=== PATIENT | male | born 1945 | race Caucasian/White ===

== ENCOUNTER 2018-03-07 16:30 | Inpatient (IN) | payer MEDICARE, OTHER ==
[~2018-03-07] VITALS: Ht 175.3 cm; Wt 89.5 kg
[~2018-03-07 16:30] MED LIST: ACEDIPPM; ACET325 PO; ACYC800 PO; ALBU3IS INH; ALBU90OI INH; ASPI325EC PO; CLOP75 PO; LEVO750 PO; LISI5 PO; METO50 PO; OXYACE5T PO; PRED20 PO; SIMV40 PO; ZYRTEC10 M1 PO; [UNRECOGNIZED DRUG - REMARK]
[2018-03-07] MEDS ORDERED: ASPI81CH PO (16:57)
[2018-03-07] MEDS ORDERED: HYDCHL25 PO (16:58)
[2018-03-07] MEDS ORDERED: CHOL10002 (16:59)
[2018-03-07 17:04] LABS: BASOPHILS ABSOLUTE AUTO 0.03 K/mm3 (0.00-0.23); BASOPHILS PERCENT AUTO 0 % (0-2); EOSINOPHILS ABSOLUTE AUTO 0.01 K/mm3 (0.00-0.68); EOSINOPHILS PERCENT AUTO 0 % (0-6); Hematocrit 39.1 % (37.0-53.0); Hemoglobin 12.9 g/dL (13.5-17.5); IMMATURE GRAN ABSOLUTE AUTO 0.09 K/mm3 (0.00-0.10); IMMATURE GRAN PERCENT AUTO 1 % (0-1); LYMPHOCYTES ABSOLUTE AUTO 2.74 K/mm3 (0.84-5.20); LYMPHOCYTES PERCENT AUTO 16 % (21-46); MONOCYTES ABSOLUTE AUTO 1.09 K/mm3 (0.16-1.47); MONOCYTES PERCENT AUTO 6 % (4-13); Mean Corpuscular Volume 79 fL (80-100); NEUTROPHILS ABSOLUTE AUTO 13.35 K/mm3 (1.96-9.15); NEUTROPHILS PERCENT AUTO 77 % (41-73); RDW Coefficient Variation 17.4 % (11.7-14.2); RDW Standard Deviation 48.3 fL (35.1-46.3); Red Blood Cell Count 4.96 M/mm3 (4.30-5.90); White Blood Cell Count 17.31 K/mm3 (4.00-11.30)
[2018-03-07 17:05] LABS: Mean Platelet Volume 11.5 fL (9.1-12.4); Platelet Count 139 K/mm3 (150-400)
[2018-03-07 18:21] LABS: Alanine Aminotransfer (ALT/SGP 24 U/L (12-78); Albumin, Blood 3.9 g/dL (3.4-5.0); Albumin/Globulin Ratio 1.1 (0.8-1.8); Alk Phos 80 U/L (50-136); Anion Gap 14 mmol/L (6-16); Aspartate Aminotrans (AST/SGOT 16 U/L (12-37); Blood Urea Nitrogen 34 mg/dL (8-24); Bun/Creatinine Ratio 20.4 (12.0-20.0); CO2, Blood 23 mmol/L (21-32); Calcium, Blood 8.9 mg/dL (8.5-10.1); Chloride, Blood 92 mmol/L (98-108); Creatinine, Blood 1.67 mg/dL (0.60-1.20); Globulin, Blood 3.5 g/dL (2.2-4.0); Glomerular Filtration Rate 43 (60-); Glucose, Blood 154 mg/dL (70-99); Potassium, Blood 3.4 mmol/L (3.5-5.5); Sodium, Blood 129 mmol/L (136-145); Total Protein, Blood 7.4 g/dL (6.4-8.2); Troponin I <0.015 ng/mL (0.000-0.040)
[2018-03-07 23:07] LABS: Hematocrit 38.4 % (37.0-53.0); Hemoglobin 12.7 g/dL (13.5-17.5)
[2018-03-08 05:10] LABS: BASOPHILS ABSOLUTE AUTO 0.02 K/mm3 (0.00-0.23); BASOPHILS PERCENT AUTO 0 % (0-2); EOSINOPHILS ABSOLUTE AUTO 0.02 K/mm3 (0.00-0.68); EOSINOPHILS PERCENT AUTO 0 % (0-6); Hematocrit 35.8 % (37.0-53.0); IMMATURE GRAN ABSOLUTE AUTO 0.08 K/mm3 (0.00-0.10); IMMATURE GRAN PERCENT AUTO 1 % (0-1); LYMPHOCYTES ABSOLUTE AUTO 2.43 K/mm3 (0.84-5.20); LYMPHOCYTES PERCENT AUTO 17 % (21-46); MONOCYTES ABSOLUTE AUTO 1.25 K/mm3 (0.16-1.47); MONOCYTES PERCENT AUTO 9 % (4-13); Mean Corpuscular HGB 26.1 pg (26.0-34.0); Mean Corpuscular HGB Conc 33.5 g/dL (31.5-36.5); Mean Corpuscular Volume 78 fL (80-100); Mean Platelet Volume 11.3 fL (9.1-12.4); NEUTROPHILS PERCENT AUTO 73 % (41-73); Platelet Count 159 K/mm3 (150-400); RDW Coefficient Variation 17.6 % (11.7-14.2); RDW Standard Deviation 48.8 fL (35.1-46.3)
[2018-03-08 05:38] LABS: Bun/Creatinine Ratio 21.7 (12.0-20.0); Calcium, Blood 8.4 mg/dL (8.5-10.1); Creatinine, Blood 1.8 mg/dL (0.60-1.20); Potassium, Blood 3.4 mmol/L (3.5-5.5); Troponin I 0.025 ng/mL (0.000-0.040)
[2018-03-08 12:35] LABS: Source, Urine Catheter
[2018-03-08 12:56] LABS: Appearance, Urine Hazy (Clear); Blood, Urine 2+ (Neg); Color, Urine Yellow (P-Yellow); Glucose Qualitative, Urine Neg (Neg); Ketones, Urine 2+ (Neg); Leukocyte Esterase, Urine 1+ (Neg); Nitrite, Urine Neg (Neg); Protein, Urine 1+ (Neg); Specific Gravity, Urine 1.025 (1.003-1.022); Urobilinogen, Urine 1+ (Normal)
[2018-03-08 13:49] LABS: Bacteria Many /hpf; Bilirubin, Urine 1+ (Neg); Squamous Epithelial Cells Few /hpf (Few)
[2018-03-09 13:40] LABS: BASOPHILS ABSOLUTE AUTO 0.02 K/mm3 (0.00-0.23); BASOPHILS PERCENT AUTO 0 % (0-2); LYMPHOCYTES ABSOLUTE AUTO 3.14 K/mm3 (0.84-5.20); LYMPHOCYTES PERCENT AUTO 32 % (21-46); MONOCYTES ABSOLUTE AUTO 0.96 K/mm3 (0.16-1.47); MONOCYTES PERCENT AUTO 10 % (4-13); Mean Corpuscular HGB Conc 32.4 g/dL (31.5-36.5); Mean Corpuscular Volume 80 fL (80-100); Mean Platelet Volume 10.9 fL (9.1-12.4); Platelet Count 159 K/mm3 (150-400); RDW Coefficient Variation 18.2 % (11.7-14.2); RDW Standard Deviation 52.6 fL (35.1-46.3); Red Blood Cell Count 4.62 M/mm3 (4.30-5.90); White Blood Cell Count 9.89 K/mm3 (4.00-11.30)
[2018-03-09 13:42] LABS: EOSINOPHILS PERCENT AUTO 0 % (0-6); IMMATURE GRAN ABSOLUTE AUTO 0.03 K/mm3 (0.00-0.10); IMMATURE GRAN PERCENT AUTO 0 % (0-1); NEUTROPHILS ABSOLUTE AUTO 5.74 K/mm3 (1.96-9.15); NEUTROPHILS PERCENT AUTO 58 % (41-73)
[2018-03-09 13:53] LABS: Albumin, Blood 2.9 g/dL (3.4-5.0); Albumin/Globulin Ratio 0.8 (0.8-1.8); Bilirubin, Total 1.6 mg/dL (0.1-1.0); Bun/Creatinine Ratio 16.7 (12.0-20.0); Calcium, Blood 8.2 mg/dL (8.5-10.1); Creatinine, Blood 4.68 mg/dL (0.60-1.20); Globulin, Blood 3.5 g/dL (2.2-4.0); Total Protein, Blood 6.4 g/dL (6.4-8.2)
[2018-03-09 14:06] LABS: BAND PERCENT MAN 24 % (0-8); BASOPHILS PERCENT MAN 0 % (0-2); EOSINOPHILS PERCENT MAN 0 % (0-6); LYMPHOCYTES ABSOLUTE MAN 3.75 K/mm3 (0.84-5.20); LYMPHOCYTES PERCENT MAN 38 % (21-46); METAMYELOCYTE ABSOLUTE MAN 0.19 K/mm3 (0.00-0.00); METAMYELOCYTE PERCENT MAN 2 % (0-0); MONOCYTES ABSOLUTE MAN 0.09 K/mm3 (0.16-1.47); MONOCYTES PERCENT MAN 1 % (4-13); MYELOCYTE ABSOLUTE MAN 0.19 K/mm3 (0.00-0.00); MYELOCYTE PERCENT MAN 2 % (0-0); NEUTROPHILS ABSOLUTE MAN 5.63 K/mm3 (1.96-9.15); SEG NEUTROPHILS PERCENT MAN 33 % (41-73); TOTAL CELLS COUNTED 100
== END 2018-03-09 18:13 | disposition short-term general hospital (02) | DRG 394 ==
LOC: ER 16:30 → MEDS 18:45 → ER 20:05 → MEDS 20:11
PROVIDERS: Emergency Medicine; Internal Medicine
DX: K40.30 Unilateral inguinal hernia, with obstruction, without gangrene, not specified as recurrent (principal); N17.9 Acute kidney failure, unspecified; E87.1 Hypo-osmolality and hyponatremia; N13.30 Unspecified hydronephrosis; N39.0 Urinary tract infection, site not specified; K92.0 Hematemesis; I25.2 Old myocardial infarction; I25.10 Atherosclerotic heart disease of native coronary artery without angina pectoris; I10 Essential (primary) hypertension; E78.5 Hyperlipidemia, unspecified; Z87.891 Personal history of nicotine dependence; R07.9 Chest pain, unspecified; Z95.5 Presence of coronary angioplasty implant and graft; N13.9 Obstructive and reflux uropathy, unspecified
CPT/HCPCS: 36415; 74176; 80048; 80053; 81001; 82272; 83605; 84484; 85014; 85018; 85025; 87077; 87086; 87186; 93005; 93010; 96374; 96375; 99285-25; C9113; J0696; J1170; J2060; J2405; J2550; J3010; J7050; J7120

== ENCOUNTER 2022-10-17 20:55 | Emergency (ER) | payer MEDICARE, OTHER ==
[~2022-10-17] VITALS: Ht 175.3 cm; Wt 96.2 kg
[~2022-10-17 20:55] MED LIST changes: +ASPI81CH PO; +CHOL10002; +HYDCHL25 PO
[2022-10-17 22:18] LABS: BASOPHILS ABSOLUTE AUTO 0.04 K/mm3 (0.00-0.23); BASOPHILS PERCENT AUTO 1 % (0-2); EOSINOPHILS ABSOLUTE AUTO 0.16 K/mm3 (0.00-0.68); EOSINOPHILS PERCENT AUTO 2 % (0-6); Hematocrit 42.6 % (37.0-53.0); Hemoglobin 14.3 g/dL (13.5-17.5); IMMATURE GRAN ABSOLUTE AUTO 0.03 K/mm3 (0.00-0.10); IMMATURE GRAN PERCENT AUTO 1 % (0-1); LYMPHOCYTES ABSOLUTE AUTO 1.41 K/mm3 (0.84-5.20); LYMPHOCYTES PERCENT AUTO 22 % (21-46); MONOCYTES ABSOLUTE AUTO 0.72 K/mm3 (0.16-1.47); MONOCYTES PERCENT AUTO 11 % (4-13); Mean Corpuscular HGB 30.7 pg (26.0-34.0); Mean Corpuscular HGB Conc 33.6 g/dL (31.5-36.5); Mean Corpuscular Volume 91 fL (80-100); Mean Platelet Volume 10.9 fL (9.1-12.4); NEUTROPHILS ABSOLUTE AUTO 4.19 K/mm3 (1.96-9.15); NEUTROPHILS PERCENT AUTO 64 % (41-73); Platelet Count 119 K/mm3 (150-400); RDW Standard Deviation 47.4 fL (35.1-46.3); Red Blood Cell Count 4.66 M/mm3 (4.30-5.90); White Blood Cell Count 6.55 K/mm3 (4.00-11.30)
[2022-10-17 22:36] LABS: Albumin, Blood 3.4 g/dL (3.4-5.0); Albumin/Globulin Ratio 0.9 (0.8-1.8); Bilirubin, Total 2.2 mg/dL (0.1-1.0); Bun/Creatinine Ratio 14.1 (12.0-20.0); Calcium, Blood 8.9 mg/dL (8.5-10.1); Creatinine, Blood 0.99 mg/dL (0.60-1.20); Globulin, Blood 3.6 g/dL (2.2-4.0); Potassium, Blood 3.9 mmol/L (3.5-5.5)
[2022-10-17] MEDS ORDERED: TAMSULOSIN HCL0.4 M1 PO (23:14)
[2022-10-17] MEDS ORDERED: KLOR-CON 1010 ME9 PO (23:14)
[2022-10-17] MEDS ORDERED: ZINC15 PO (23:15)
[2022-10-17] MEDS ORDERED: Vitamin C100 M1 PO (23:15)
[2022-10-17] MEDS ORDERED: FISH OIL 1,2001 EAC7 PO (23:16)
[2022-10-18] MEDS ORDERED: HYDPAM25 PO (01:28)
== END 2022-10-18 01:52 | disposition home or self-care (01) ==
LOC: ER 20:55
PROVIDERS: Student in an Organized Health Care Education/Training Program
DX: R07.89 Other chest pain (principal); I10 Essential (primary) hypertension; F41.9 Anxiety disorder, unspecified; R79.89 Other specified abnormal findings of blood chemistry; Z79.899 Other long term (current) drug therapy; Z79.82 Long term (current) use of aspirin
CPT/HCPCS: 36415; 71045; 80053; 84484; 85025; 93005; 93010; 99284-25

== ENCOUNTER 2022-11-14 08:06 | Inpatient (IN) | payer MEDICARE, OTHER ==
[~2022-11-14] VITALS: Ht 170.2 cm; Wt 77.2 kg
[~2022-11-14 08:06] MED LIST changes: -CHOL10002; +FISH OIL 1,2001 EAC7 PO; +HYDPAM25 PO; +KLOR-CON 1010 ME9 PO; +TAMSULOSIN HCL0.4 M1 PO; +VITAMIN D31000 UNI1 PO; +Vitamin C100 M1 PO; +ZINC15 PO
[2022-11-14 08:42] LABS: Hematocrit 48.8 % (37.0-53.0); Hemoglobin 15.9 g/dL (13.5-17.5); Mean Corpuscular HGB 29.6 pg (26.0-34.0); Mean Corpuscular HGB Conc 32.6 g/dL (31.5-36.5); Mean Corpuscular Volume 91 fL (80-100); Mean Platelet Volume 10.8 fL (9.1-12.4); Platelet Count 290 K/mm3 (150-400); RDW Coefficient Variation 14.1 % (11.7-14.2); RDW Standard Deviation 46.5 fL (35.1-46.3); Red Blood Cell Count 5.37 M/mm3 (4.30-5.90); White Blood Cell Count 48.68 K/mm3 (4.00-11.30)
[2022-11-14 08:57] LABS: Source, Urine Foley catheter
[2022-11-14 09:01] LABS: Appearance, Urine Clear (Clear); Blood, Urine 1+ (Neg); Color, Urine Amber (P-Yellow); Glucose Qualitative, Urine Neg (Neg); Ketones, Urine 2+ (Neg); Leukocyte Esterase, Urine 1+ (Neg); Nitrite, Urine Pos (Neg); Protein, Urine 2+ (Neg); Specific Gravity, Urine 1.025 (1.003-1.022); Urobilinogen, Urine 3+ (Normal)
[2022-11-14 09:04] LABS: Albumin/Globulin Ratio 0.7 (0.8-1.8); Bun/Creatinine Ratio 32.5 (12.0-20.0); Calcium, Blood 9.4 mg/dL (8.5-10.1); Creatinine, Blood 2.06 mg/dL (0.60-1.20); Globulin, Blood 4.4 g/dL (2.2-4.0); Potassium, Blood 2.7 mmol/L (3.5-5.5); Total Protein, Blood 7.4 g/dL (6.4-8.2)
[2022-11-14 09:05] LABS: PCO2 Arterial 20.2 mmHg (35-45); PO2 Arterial 128 mmHg (80-100); pH Blood Arterial 7.38 (7.35-7.45)
[2022-11-14 09:07] LABS: Bilirubin, Urine 2+ (Neg)
[2022-11-14 09:10] LABS: Mucus Mod (0-Heavy); Red Blood Cells, Urine 0-2 /hpf (0-2); Squamous Epithelial Cells Few /hpf (Few)
[2022-11-14 09:11] LABS: Bacteria Mod /hpf
[2022-11-14 09:16] LABS: BASOPHILS PERCENT MAN 0 % (0-2); EOSINOPHILS PERCENT MAN 0 % (0-6); LYMPHOCYTES ABSOLUTE MAN 27.26 K/mm3 (0.84-5.20); LYMPHOCYTES PERCENT MAN 56 % (21-46); MONOCYTES ABSOLUTE MAN 1.46 K/mm3 (0.16-1.47); MONOCYTES PERCENT MAN 3 % (4-13); NEUTROPHILS ABSOLUTE MAN 19.95 K/mm3 (1.96-9.15); SEG NEUTROPHILS PERCENT MAN 41 % (41-73); TOTAL CELLS COUNTED 100
[2022-11-14 09:21] LABS: U Amphetamine Screen Not Detected; U Barbituate Screen Not Detected; U Benzodiazapine Screen Not Detected; U Buprenorphine Screen Not Detected; U Cannabinoids Screen Not Detected; U Cocaine Screen Not Detected; U Methadone Screen Not Detected; U Methamphetamine Screen Not Detected; U Opiates Screen Not Detected; U Oxycodone Screen Not Detected; U Phencyclidine Screen Not Detected; U Propoxyphene Screen Not Detected
[2022-11-14] MEDS ORDERED: FINA5 PO ×2 (10:06→17:22)
[2022-11-14] MEDS ORDERED: FURO20 PO (10:07)
[2022-11-14] MEDS ORDERED: HYDROXYZINE PAM25 MG PO (10:09)
[2022-11-14] MEDS ORDERED: Zestril30 MG PO (10:10)
[2022-11-14] MEDS ORDERED: METO100 PO (10:11)
[2022-11-14] MEDS ORDERED: KLOR-CON 1010 ME1 PO (10:12)
[2022-11-14] MEDS ORDERED: FLOMAX0.4 MG PO (10:13)
[2022-11-14 12:31] VITALS: BP 120/86
[2022-11-14 15:34] VITALS: BP 100/65
[2022-11-14] MEDS ORDERED: HYDPAM25 (17:07)
[2022-11-14] MEDS ORDERED: NITR.4SL SL (17:09)
--- NOTE | 2022-11-14 17:10 | NUR ---
ADMIT: PATIENT ADMIT TO PCU AT 1220. USED SLIDE SHEET TO TRANSFER. ABLE TO TELL ME HIS NAME, , AND WHERE HE IS. UNAWARE OF SITUATION AND HOW HE GOT HERE. ALERT AND ORIENTED X2-3. FORGETFUL AND ASKING REPETATIVE QUESTIONS. DENIES NUMBNESS/TINGLING. PERRLA. BILATERAL DEVELOPMENT DISABILITY SPECIALIST STRENGTH AND EXTREMITY MOVEMENTS. ON ROOM AIR SATING ABOVE 95%. LUNGS SOUNDS CLEAR WITH EXPIRATORY WHEEZE. DENIES SOB. TELE SHOWING AFIB WITH HR 90'S. DENIES CHEST PAIN/PRESSURE. DENIES KNOWNING ANY HISTORY OF AFIB. PPP. NO EDEMA NOTED. DENIES ABDOMINAL PAIN/NAUSEA. BEDSIDE SWALLOW EVAL DONE AND NO ISSUES WITH SWALLOWING NOTED. [facility] SOFT DIET ORDERS IN PLACE. PATIENT DOES NOT HAVE ANY TEETH OR DENTURES. CLARK CATH IN PLACE DRAINING CLEAR/ALBA TEA WITH SMALL AMOUNTS OF SEDIMENT. PATIENT COMPLAINS OF PAIN AT URETHRA SITE, PATIENT PULLING AT CATHETER EARLIER. SMALL AMOUNT OF DISCHARGE AT URETHRA. CATH CARE COMPLETED WITH CATHETER CLEANING WIPES. 3 MODERATE-LARGE SIZED BROWN/FOUL SMELLING STOOLS. STOOL SAMPLE SENT TO LAB. SISTER IN LAW KATYA AND NIECE MARCUS ARE PRIMARY CONTACTS. INFO WRITTEN ON BOARD. PATIENT PULLED LEFT FOREARM IV. RIGHT AC IV INFUSING NS AND ZOSYN PER EMAR AT THIS TIME. USING CALL LIGHT INTERMIT AND AT TIMES CALLING OUT. CODE STATUS REVIEWED WITH PATIENT AND FULL CODE WANTED. LACTIC TRENDING DOWN AND WNL. SKIN OVERALL C/D/I. REDNESS TO COCCYX THAT IS BLANCHABLE AND BILATERAL KNEE EXCORIATIONS.
[2022-11-14] MEDS ORDERED: LORA10ER PO (17:19)
[2022-11-14 18:11] VITALS: BP 143/82
--- NOTE | 2022-11-14 18:35 | NUR ---
SHIFT SUMMARY: NO ACUTE CHANGES. SEE PREVIOUS NOTE. MED LIST OBTAINED FROM [facility] AND MED REC COMPELTED TO THE BEST OF THIS RN ABILITY WITH MED LIST. MED LIST PLACED IN CHART. REMAINS ON ROOM AIR. REMAINS IN AFIB, NO TELE EVENTS. CLARK CONTINUES TO DRAIN ALBA URINE. NS INFUSING PER EMAR. PATIENT ABLE TO EAT SMALL AMOUNT OF DINNER, NO SWALLOW ISSUES NOTED. REMAINS BEDREST WITH BED ALARM IN PLACE. DWAYNE VELAZQUEZ CALLED AND UPDATED. PATIENT CALLED DWAYNE FROM ROOM PHONE. WILL REPORT OFF TO NOC RN.
[2022-11-14 19:27] VITALS: BP 126/60
--- NOTE | 2022-11-14 22:36 | NUR ---
CONTACTED DR CARLISLE REGARDING PT PAIN POST CLARK REMOVAL AND ORDER FOR URO-JET WAS OBTAINED.
[2022-11-15 00:01] VITALS: BP 110/63
[2022-11-15 03:42] VITALS: BP 104/64
[2022-11-15 03:52] LABS: BASOPHILS ABSOLUTE AUTO 0.03 K/mm3 (0.00-0.23); BASOPHILS PERCENT AUTO 0 % (0-2); EOSINOPHILS PERCENT AUTO 1 % (0-6); Hematocrit 39.1 % (37.0-53.0); Hemoglobin 13.4 g/dL (13.5-17.5); Mean Corpuscular HGB 30.6 pg (26.0-34.0); Mean Corpuscular HGB Conc 34.3 g/dL (31.5-36.5); Mean Corpuscular Volume 89 fL (80-100); Mean Platelet Volume 10.7 fL (9.1-12.4); Platelet Count 165 K/mm3 (150-400); RDW Coefficient Variation 14.5 % (11.7-14.2); RDW Standard Deviation 46.2 fL (35.1-46.3); Red Blood Cell Count 4.38 M/mm3 (4.30-5.90); White Blood Cell Count 19.32 K/mm3 (4.00-11.30)
[2022-11-15 03:54] LABS: IMMATURE GRAN ABSOLUTE AUTO 0.06 K/mm3 (0.00-0.10); IMMATURE GRAN PERCENT AUTO 0 % (0-1); LYMPHOCYTES ABSOLUTE AUTO 9.69 K/mm3 (0.84-5.20); LYMPHOCYTES PERCENT AUTO 50 % (21-46); MONOCYTES ABSOLUTE AUTO 0.75 K/mm3 (0.16-1.47); MONOCYTES PERCENT AUTO 4 % (4-13); NEUTROPHILS ABSOLUTE AUTO 8.69 K/mm3 (1.96-9.15); NEUTROPHILS PERCENT AUTO 45 % (41-73)
[2022-11-15 04:12] LABS: Albumin, Blood 2.4 g/dL (3.4-5.0); Albumin/Globulin Ratio 0.7 (0.8-1.8); Bilirubin, Total 2.1 mg/dL (0.1-1.0); Bun/Creatinine Ratio 32.1 (12.0-20.0); Creatinine, Blood 1.9 mg/dL (0.60-1.20); Globulin, Blood 3.4 g/dL (2.2-4.0); Potassium, Blood 3.1 mmol/L (3.5-5.5); Total Protein, Blood 5.8 g/dL (6.4-8.2)
--- NOTE | 2022-11-15 06:19 | NUR ---
DIE STORAGE CLERK SUMMARY ASSUMED CARE OF THE PT AT 1900. HE IS ALERT AND ORIENTED TO PLACE, MONTH, BIRTHDAY AND HIS FAMILY. PT IMPULSIVE AND FORGETFUL - BED ALARM ON. HE HAD GOTTEN OUT OF BED ON HIS OWN THIS SHIFT AND PUT TENSION ON THE CLARK CATHETER THAT HAD BEEN PLACED IN ED. PT THEN REPORTED SEVERE PAIN WITH CLEANING AND REPOSITIONING OF THE CLARK WITH NOTED BLOOD IN THE CATHETER TUBING SO CLARK WAS REMOVED. PT CONTINUED TO HAVE URETHRAL PAIN SO WAS GIVEN A UROJET WITH IMPROVEMENT. PT HAS BEEN INCONTINENT IN ATTENDS SINCE CLARK REMOVAL. URINE IS ALBA IN COLOR AND PT REPORTS BURNING AT TIMES. HE HAS BEEN RECEIVING IV ABX AND IV FLUIDS. PT IS VERY BORED AND FIDGETING OFTEN.
[2022-11-15 08:13] VITALS: BP 99/65
--- NOTE | 2022-11-15 10:48 | NUR ---
AM NOTE: PATIENT ALERT AND ORIENTED TO SELF, , PLACE, AND YEAR. UNABLE TO TELL ME SITUATIONAL DETAILS. PERRLA. DENIES NUMBNESS/TINGLING. EQUAL BILATERAL STRENGTH AND EXTREMITY MOVEMENTS. ON ROOM AIR SATING ABOVE 95%. EVEN UNLABORDED RESPIRATIONS. OCCASIONAL LOOSE COUGH WITH THIN/CLEAR SPUTUM. ON TELE SHOWING AFIB WITH HR 80-90'S. DENIES CHEST PAIN/PRESSURE. BP ON SOFTER SIDE. NO SIGNS OF EDEMA. DENIES ABODMINAL PAIN/NAUSEA. EATING AND DRINKING SMALL AMOUNTS OF WATER. INCONTINENT OF URINE AND STOOL. STOOLS HAVE BEEN LOOSE/LIQUID. STOOL CULTURE PENDING. ABX GIVEN. SKINE OVERALL C/D/I. REDNESS TO COCCYX WITH MEPILEX IN PLACE WELL BILATERAL KNEE ABRASION FROM BEING DOWN PRIOR TO ADMIT. CALL LIGHT IN REACH. BED ALARM IN PLACE. DR. BRAGG BY TO SEE PATIENT. NEW ORDERS FOR THIS RN TO PLACE. ORDERS: H&H AND K LAB DRAW AT 1600, MEDICAL STATUS WITH TELE, DISCONTINUE NORMAL SALINE, 40 MEQ KCL PO NOW X1. ORDERS IN PLACE.
[2022-11-15 11:14] VITALS: BP 108/73
--- NOTE | 2022-11-15 12:55 | NUR ---
AROUND 1252 PATIENT CONVERTED FROM AFIB TO SINUS RHYTHM, HR 50-60'S. PATIENT SLEEPING DURING TIME. DR. BRAGG CALLED AND UPDATED. PHYSICAL THERAPY IN ROOM AT THIS TIME. PLAN FOR ABDOMINAL ULTRASOUND AROUND 1330.
[2022-11-15 14:07] VITALS: BP 116/76
--- NOTE | 2022-11-15 14:27 | NUR ---
TRANSFER TO MEDICAL: NO ACUTE CHANGES. PATIENT LEFT PCU VIA WHEELCHAIR WITH ALL PERSONAL BELONGINGS AND HOSPITAL CHART. SISTER IN LAW KATYA CALLED AND UPDATED ON TRANSFER. ULTRASOUND COMPLETED. REPORTED OFF TO MED FLOOR RN.
[2022-11-15 16:31] LABS: Hematocrit 39.8 % (37.0-53.0)
--- NOTE | 2022-11-15 17:10 | NUR ---
SHIFT SUMMARY PATIENT IS ALERT AND ORIENTED BUT FORGETFUL. PATIENT IS A AFTERNOON TRANSFER FROM PCU 10. PATIENT HAS HAD NO ACUTE EVENTS THIS SHIFT. VITAL SIGNS REVIEWED. PATIENT HAS HAD NO COMPLAINTS OF PAIN, SOB, NAUSEA OR SOB THIS SHIFT. ABX INFUSED. BED IN LOWEST AND LOCKED POSITION. CALL LIGHT IN PLACE. WILL MONITOR UNTIL SHIFT CHANGE.
[2022-11-15 20:03] VITALS: BP 122/75
--- NOTE | 2022-11-16 04:08 | NUR ---
SHIFT SUMMARY; NO ACUTE CHANGES OVERNIGHT. THE PT HAS BEEN SLEEPING FOR ALMOST THE ENTIRETY OF THE SHIFT. TELE IS IN PLACE, THE PT HAS BEEN SINUS/SINUS TAE 50-60'S. THE PT DENIES ANY SOB, CHEST PAIN/PRESSURE, PAIN OR N/V. CURRENTLY THE PT IS RESTING IN BED WITH THE BED IN THE LOWEST POSITION AND THE CALL LIGHT AT BEDSIDE.
[2022-11-16 04:09] VITALS: BP 124/70
[2022-11-16 05:09] LABS: BASOPHILS ABSOLUTE AUTO 0.03 K/mm3 (0.00-0.23); BASOPHILS PERCENT AUTO 0 % (0-2); EOSINOPHILS ABSOLUTE AUTO 0.23 K/mm3 (0.00-0.68); EOSINOPHILS PERCENT AUTO 2 % (0-6); Hematocrit 38.8 % (37.0-53.0); Hemoglobin 12.8 g/dL (13.5-17.5); IMMATURE GRAN ABSOLUTE AUTO 0.04 K/mm3 (0.00-0.10); IMMATURE GRAN PERCENT AUTO 0 % (0-1); LYMPHOCYTES ABSOLUTE AUTO 6.58 K/mm3 (0.84-5.20); LYMPHOCYTES PERCENT AUTO 64 % (21-46); MONOCYTES ABSOLUTE AUTO 0.48 K/mm3 (0.16-1.47); MONOCYTES PERCENT AUTO 5 % (4-13); Mean Corpuscular HGB 29.8 pg (26.0-34.0); Mean Corpuscular Volume 90 fL (80-100); Mean Platelet Volume 10.8 fL (9.1-12.4); NEUTROPHILS ABSOLUTE AUTO 2.98 K/mm3 (1.96-9.15); NEUTROPHILS PERCENT AUTO 29 % (41-73); Platelet Count 137 K/mm3 (150-400); RDW Coefficient Variation 14.7 % (11.7-14.2); RDW Standard Deviation 47.7 fL (35.1-46.3); White Blood Cell Count 10.34 K/mm3 (4.00-11.30)
[2022-11-16 05:36] LABS: Albumin, Blood 2.4 g/dL (3.4-5.0); Albumin/Globulin Ratio 0.8 (0.8-1.8); Bilirubin, Total 1.8 mg/dL (0.1-1.0); Calcium, Blood 8.3 mg/dL (8.5-10.1); Creatinine, Blood 1.4 mg/dL (0.60-1.20); Globulin, Blood 3.1 g/dL (2.2-4.0); Potassium, Blood 3.5 mmol/L (3.5-5.5); Total Protein, Blood 5.5 g/dL (6.4-8.2)
[2022-11-16 07:15] VITALS: BP 134/73
[2022-11-16 15:24] VITALS: BP 127/73
--- NOTE | 2022-11-16 15:46 | NUR ---
SHIFT SUMMARY: PATIENT IS ALERT AND ORIENTED TO SELF, PLACE AND PERSON, BUT COULD NOT RECALL THE SPECIFIC DAY, DATE, MONTH AND EVEN YEAR. IMPULSSIVE AND DOES NOT USES CALL LIGHT APPROPRIATELY. PLEASANT, COOPERATIVE c CARE AND EASILY REDIRECTABLE. PATIENT DENIES CP/PRESSURE, SOB, N/V AND GENERALIZED PAIN. ON TELE, HR IN THE HIGH 60'S BPM c PAC, PER TITLE CURATOR KAHLIL. PATIENT AMBULATES TO BATHROOM AND BACK IN BED c 1 ASSIST. PATIENT IS CONTINENCE/INCONTINENCE, AND WEAR ATTENDS. ATTENDS CHANGED T/O SHIFT. TOLERATING ORAL INTAKE WITHOUT ANY DIFFICULTIES. IV TO RAC SALINE LOCKED. BED ALARM ON FOR SAFETY. CALL LIGHT IN REACH.
[2022-11-16 19:31] VITALS: BP 118/65
--- NOTE | 2022-11-16 20:00 | NUR ---
PT UP TO BRP WITH WALKER AND SBA. PT HAS NOTED BLOOD, APPX 1 TABLESPOON OF BLOOD IN HIS ATTENDS - UNABLE TO DETERMINE SOURCE, NO VISIBLE SIGNS OF BLEEDING FROM RECTUM, PENIS, OR ABRASIONS - WILL CONTINUE TO MONITOR THROUGHOUT THE NIGHT.
--- NOTE | 2022-11-17 00:25 | NUR ---
SPOKE TO HUE MARCUM - UPDATED ON BLEEDING FROM PENIS. TRIXIE SPOKE TO RN THAT HAD THIS PT LAST NOC. RN REPORTED THAT PT WASN'T BLEEDING FROM PENIS LAST NOC, AND PER HER REPORT PT DID HAVE A CLARK, WHICH WAS REMOVED PRIOR TO HER SHIFT LAST NOC.
--- NOTE | 2022-11-17 00:30 | NUR ---
UP TO BRP WITH SBA/WALKER - INITIAL STREAM OF URINE IN URINAL - NO VISIBLE BLEEDING - SO PT CONTINUED TO URINATE SITTING DOWN ON TOILET - WITH APPX 2 TEASPOONS OF BLOOD IN TOILET. VISUALIZED BLOOD COMING FROM PENIS - WILL FOLLOW UP WITH . PT IS ON HEPARIN - SEE EMAR.
--- NOTE | 2022-11-17 00:37 | NUR ---
DR. GEORGES NOTIFIED - DC HEPARIN FOR NOW. CONTINUE TO MONITOR BLOOD WITH URINATION.
--- NOTE | 2022-11-17 04:08 | NUR ---
SHIFT SUMMARY - HEPARIN DC'D TONIGHT, DUE TO BLEEDING FROM PENIS, WITH NURSE NOTIFY ORDER PLACED (SEE ORDER). AT APPX 0230 TONIGHT, PT BECAME UNCOMFORTABLE, PULLING GOWN OFF, TELE OFF, BLANKETS OFF - PT IS REDIRECTABLE, HOWEVER HE IS UNABLE TO STATE WHY HE IS UNCOMFORTABLE. PT DENIED ANY PAIN. PT REMAINED A&OX3 DURING THIS EPISODE - STATED NAME, PLACE, AND YEAR. PT IS CURRENTLY RESTING QUIETLY IN BED ON HIS SIDE, NO S/S OF DISTRESS NOTED. RESPIRATIONS EVEN AND UNLABORED. CALL LIGHT WITHIN REACH. BED ALARM ON FOR SAFETY THROUGHOUT THE NIGHT. FLUIDS AT BEDSIDE. WILL CONTINUE TO MONITOR UNTIL AM SHIFT CHANGE.
[2022-11-17 04:16] VITALS: BP 143/78
[2022-11-17 07:31] VITALS: BP 127/75
[2022-11-17] MEDS ORDERED: SULTRIDS PO (14:23)
[2022-11-17 15:18] VITALS: BP 139/83
--- NOTE | 2022-11-17 16:39 | NUR ---
END OF SHIFT SUMMARY PATIENT A&O X3. CONFUSED AT DIFFERENT TIMES THROUGHOUT THE DAY. TRIES TO GET OUT OF BED, UNABLE TO FOCUS ON DIRECTIONS. INCONTINENT THROUGHOUT THE DAY TRIES TO MAKE IT TO THE BATHROOM BUT ENDS UP WITH URINE ON SELF AND FLOOR. IS ABLE TO MAKE IT TO THE BATHROOM WITH ASSISTANCE FROM NURSE. PT IS COOPERATIVE BUT FORGETS AND PRESSES THE CALL BUTTON WITHOUT KNOWING. OT MET WITH PT AND DID COG-EVAL, WAITING ON PSYCH TO COME SEE PATIENT. TELE AND IC DC'ED TODAY. PT DISCONTINUED ROCEPHIN AND WAS SWITCHED TO BACTRIM
[2022-11-17 20:16] VITALS: BP 113/64
[2022-11-18 03:00] VITALS: BP 151/83
--- NOTE | 2022-11-18 04:30 | NUR ---
SHIFT SUMMARY A/OX2, IMPULSIVE ATTEMPTING TO GET OOB, EASILY REDIRECTED. 1P ASSIST TO BATHROOM. DENIES PAIN OR SOB, SPO2 >92% ON RA. VSS, NO ACUTE CHANGES AT THIS TIME. BED IN LOWEST POSITION WITH CALL LIGHT IN REACH. WILL CONTINUE TO MONITOR AND REPORT TO ONCOMING RN.
[2022-11-18 05:29] LABS: BASOPHILS ABSOLUTE AUTO 0.03 K/mm3 (0.00-0.23); BASOPHILS PERCENT AUTO 0 % (0-2); EOSINOPHILS PERCENT AUTO 3 % (0-6); Hematocrit 36.5 % (37.0-53.0); Hemoglobin 12.6 g/dL (13.5-17.5); IMMATURE GRAN ABSOLUTE AUTO 0.03 K/mm3 (0.00-0.10); IMMATURE GRAN PERCENT AUTO 0 % (0-1); LYMPHOCYTES PERCENT AUTO 66 % (21-46); MONOCYTES ABSOLUTE AUTO 0.51 K/mm3 (0.16-1.47); MONOCYTES PERCENT AUTO 6 % (4-13); Mean Corpuscular HGB 30.1 pg (26.0-34.0); Mean Corpuscular HGB Conc 34.5 g/dL (31.5-36.5); Mean Corpuscular Volume 87 fL (80-100); Mean Platelet Volume 10.9 fL (9.1-12.4); NEUTROPHILS ABSOLUTE AUTO 1.97 K/mm3 (1.96-9.15); NEUTROPHILS PERCENT AUTO 25 % (41-73); Platelet Count 114 K/mm3 (150-400); RDW Coefficient Variation 13.8 % (11.7-14.2); RDW Standard Deviation 43.5 fL (35.1-46.3); Red Blood Cell Count 4.18 M/mm3 (4.30-5.90); White Blood Cell Count 7.94 K/mm3 (4.00-11.30)
[2022-11-18 05:54] LABS: Albumin, Blood 2.4 g/dL (3.4-5.0); Anion Gap 2 mmol/L (6-16); Blood Urea Nitrogen 17 mg/dL (8-24); Bun/Creatinine Ratio 20.5 (12.0-20.0); CO2, Blood 23 mmol/L (21-32); Calcium, Blood 8.1 mg/dL (8.5-10.1); Chloride, Blood 112 mmol/L (98-108); Creatinine, Blood 0.83 mg/dL (0.60-1.20); Glomerular Filtration Rate 91 (60-); Glucose, Blood 86 mg/dL (70-99); Phosphorus, Blood 1.9 mg/dL (2.5-4.9); Potassium, Blood 3.7 mmol/L (3.5-5.5); Sodium, Blood 137 mmol/L (136-145)
[2022-11-18 07:47] VITALS: BP 137/79
[2022-11-18 15:44] VITALS: BP 123/78
--- NOTE | 2022-11-18 16:45 | NUR ---
END OF SHIFT SUMMARY PT A&O X3. CONFUSED TO HIS CURRENT SITUATION. CALM AND COOPERATIVE WITH CARE. PT WAS TOLD BY DR BRONSON TODAY THAT HE LIKELY WOULD NOT BE GOING BACK HOME TO HIS RV. PT'S MOOD SEEM TO CHANGE AND HE WAS DOWN AND WITHDRAWN FOR MOST THE DAY AFTER THAT. DR TORRES EVALUATED PT AND RECOMMENDED [employer]. LETTER IN PT'S CHART. PT WORKED WITH PT/OT TODAY AND AMBULATED WITH WALKER AND GAITBELT UP AND OWN THE HALLWAY. PT WOULD LIKE TO WEAR HIS OWN CLOTHES. SIS IN LAW KATYA TOOK HIS DIRTY CLOTHES HOME TO WASH AND BRING BACK. PT IS ONE PERSON ASSIST. CONT/INT, AT TIMES DOES NOT MAKE IT TO THE BATHROOM OR ENDS UP GOING ON THE FLOOR. BED ALARM ON
[2022-11-18 19:31] VITALS: BP 118/73
--- NOTE | 2022-11-19 03:14 | NUR ---
SHIFT SUMMARY NOC PT A/O TO SELF AND PLACE. PT WAS HITTING CALL LIGHT CONTINOUSLY FOR NO REASON. PT WAS ALSO IMPULSIVE GETTING OOB UNSAFELY. ORDER FOR ZYPREXA PO OBTAINED AND ADMINISTERED. PT WAS 1PA TO BATHROOM. PT FAILED MME DURING AM AND PLAN NOW IS FOR LTC/[facility]ORY [facility] FACILITY PLACEMENT. PT IS CURRENTLY RESTINGWITH BED ALARM ON, BED IN LOWEST POSITION, AND CALL LIGHT WITHIN REACH.
[2022-11-19 04:29] VITALS: BP 142/79
[2022-11-19 06:01] LABS: Albumin, Blood 2.6 g/dL (3.4-5.0); Anion Gap 2 mmol/L (6-16); Blood Urea Nitrogen 13 mg/dL (8-24); Bun/Creatinine Ratio 14.2 (12.0-20.0); CO2, Blood 22 mmol/L (21-32); Calcium, Blood 8.7 mg/dL (8.5-10.1); Chloride, Blood 112 mmol/L (98-108); Creatinine, Blood 0.92 mg/dL (0.60-1.20); Glomerular Filtration Rate 87 (60-); Glucose, Blood 91 mg/dL (70-99); Phosphorus, Blood 1.8 mg/dL (2.5-4.9); Potassium, Blood 3.6 mmol/L (3.5-5.5); Sodium, Blood 136 mmol/L (136-145)
[2022-11-19 07:37] VITALS: BP 126/73
--- NOTE | 2022-11-19 08:53 | NUR ---
SPOKE TO DR BRONSON- PT HAS NO IV ACCESS. STAT ORDER FOR OT K PHOS WAS PLACED. CALLED TO CLARIFY ORDER. RECIEVED ORDER TO HOLD IV K PHOS. MD TO PLACE ORDER FOR PO.
[2022-11-19 16:36] VITALS: BP 111/72
--- NOTE | 2022-11-19 17:33 | NUR ---
SHIFT SUMMARY PATIENT RESTING IN BED MOST OF DAY, DOES GET UP ON HIS OWN, BED ALARM ON AND PATIENT ASSISTED TO BATHROOM. PATIENT DENIES PAIN THROUHOUT THE DAY, PLEASANT AND COOPERATIVE WITH CARE.
[2022-11-19 19:30] VITALS: BP 125/70
[2022-11-20 02:03] VITALS: BP 118/71
--- NOTE | 2022-11-20 07:34 | NUR ---
no changes overnight. Ean was awake a good part of the night. Impulsive OOB, forgetting how to use call light and pushing the buttons all night. He is pleasant and cooperative (when he understands what is needed) and alert to self only. He is able to ambulate with a minimal contact guard assist with a Front Wheeled Walker to bathroom
[2022-11-20 07:40] VITALS: BP 115/70
--- NOTE | 2022-11-20 10:42 | NUR ---
SHIFT SUMMARY PT DISCHARGED TO [facility], TRANSPORTED BY [facility]. DISCHARGE INFORMATION GIVEN TO THE TRANSPORT OFFICIAL, PT DRESSED IN PERSONAL CLOTHES.
== END 2022-11-20 10:40 | disposition home or self-care (01) | DRG 871 ==
LOC: ER 08:06 → PCU 10:01 → MEDS 10:01 → PCU 12:14 → MEDS 11-15 14:04 → ENPENDDIS 11-19 13:40 → MEDS 11-20 10:40
PROVIDERS: Family Medicine; Student in an Organized Health Care Education/Training Program; ADMIT Internal Medicine
PROC: 3E03329 Introduction of Other Anti-infective into Peripheral Vein, Percutaneous Approach (ICD-10-PCS; principal; 2022-11-14)
PROC: 4A033R1 Measurement of Arterial Saturation, Peripheral, Percutaneous Approach (ICD-10-PCS; 2022-11-14)
PROC: 0T9B70Z Drainage of Bladder with Drainage Device, Via Natural or Artificial Opening (ICD-10-PCS; 2022-11-14)
DX: A41.9 Sepsis, unspecified organism (principal); G93.41 Metabolic encephalopathy; N39.0 Urinary tract infection, site not specified; E87.20 Acidosis, unspecified; N17.9 Acute kidney failure, unspecified; R65.20 Severe sepsis without septic shock; R74.8 Abnormal levels of other serum enzymes; E78.5 Hyperlipidemia, unspecified; I10 Essential (primary) hypertension; N40.0 Benign prostatic hyperplasia without lower urinary tract symptoms; J44.9 Chronic obstructive pulmonary disease, unspecified; I25.10 Atherosclerotic heart disease of native coronary artery without angina pectoris; E87.6 Hypokalemia; E80.6 Other disorders of bilirubin metabolism; I48.91 Unspecified atrial fibrillation; F03.B0 Unspecified dementia, moderate, without behavioral disturbance, psychotic disturbance, mood disturbance, and anxiety; K40.20 Bilateral inguinal hernia, without obstruction or gangrene, not specified as recurrent; R74.01 Elevation of levels of liver transaminase levels; R68.0 Hypothermia, not associated with low environmental temperature; I95.9 Hypotension, unspecified; Z98.890 Other specified postprocedural states; Z95.5 Presence of coronary angioplasty implant and graft; I25.2 Old myocardial infarction; Z87.891 Personal history of nicotine dependence; Z79.82 Long term (current) use of aspirin; Z79.899 Other long term (current) drug therapy; Z79.811 Long term (current) use of aromatase inhibitors
CPT/HCPCS: 36415; 36600; 51702; 70450; 71045; 76705; 80053; 80069; 81001; 82803; 83605; 83735; 84132; 84145; 84443; 85014; 85018; 85025; 87015; 87040; 87045; 87046; 87086; 87205; 87899; 93005; 93010; 96374-59; 96375-59; 97110; 97130; 97162; 97166; 97530; 97535; 99285-25; A9270; J0696; J1644; J1790; J2543; J3480; J7030; J7050; J7060; J7120

== ENCOUNTER 2023-11-11 17:12 | Emergency (ER) | payer OTHER, MEDICARE ==
[~2023-11-11] VITALS: Ht 175.3 cm; Wt 81.7 kg
[~2023-11-11 17:12] MED LIST changes: +DONEPEZIL HCL10 MG PO; +FINA5 PO; +FLOMAX0.4 MG PO; +FURO20 PO; +HYDPAM25; +HYDROXYZINE PAM25 MG PO; +KLOR-CON 1010 ME1 PO; +LORA10ER PO; +LOSA25 PO; +METO100 PO; +NITR.4SL SL; +OLAN10 PO; +SULTRIDS PO; +Zestril30 MG PO
[2023-11-11 17:44] VITALS: BP 119/74
[2023-11-11] MEDS ORDERED: MELATONIN5 M1 PO (18:15)
== END 2023-11-11 19:46 | disposition home or self-care (01) ==
LOC: ER 17:12
DX: Z04.3 Encounter for examination and observation following other accident (principal); Z87.891 Personal history of nicotine dependence; I10 Essential (primary) hypertension; E78.5 Hyperlipidemia, unspecified; J44.9 Chronic obstructive pulmonary disease, unspecified; I25.2 Old myocardial infarction; Z79.899 Other long term (current) drug therapy; W01.0XXA Fall on same level from slipping, tripping and stumbling without subsequent striking against object, initial encounter; Y92.129 Unspecified place in nursing home as the place of occurrence of the external cause
CPT/HCPCS: 99285

== ENCOUNTER 2024-01-15 00:19 | Emergency (ER) | payer MEDICARE, OTHER ==
[~2024-01-15] VITALS: Ht 188 cm; Wt 72.6 kg
[~2024-01-15 00:19] MED LIST changes: +ALPR.25; +FURO80 PO; +MELATONIN5 M1 PO; +NYSTRIT TOP
[2024-01-15 00:39] LABS: BASOPHILS ABSOLUTE AUTO 0.06 K/mm3 (0.00-0.23); BASOPHILS PERCENT AUTO 1 % (0-2); EOSINOPHILS ABSOLUTE AUTO 0.22 K/mm3 (0.00-0.68); EOSINOPHILS PERCENT AUTO 4 % (0-6); Hematocrit 42.5 % (37.0-53.0); Hemoglobin 14.1 g/dL (13.5-17.5); IMMATURE GRAN ABSOLUTE AUTO 0.02 K/mm3 (0.00-0.10); IMMATURE GRAN PERCENT AUTO 0 % (0-1); LYMPHOCYTES ABSOLUTE AUTO 2.07 K/mm3 (0.84-5.20); LYMPHOCYTES PERCENT AUTO 34 % (21-46); MONOCYTES ABSOLUTE AUTO 0.72 K/mm3 (0.16-1.47); MONOCYTES PERCENT AUTO 12 % (4-13); Mean Corpuscular HGB 30.6 pg (26.0-34.0); Mean Corpuscular HGB Conc 33.2 g/dL (31.5-36.5); Mean Corpuscular Volume 92 fL (80-100); Mean Platelet Volume 10.9 fL (9.1-12.4); NEUTROPHILS ABSOLUTE AUTO 3.01 K/mm3 (1.96-9.15); NEUTROPHILS PERCENT AUTO 49 % (41-73); Platelet Count 157 K/mm3 (150-400); RDW Coefficient Variation 13.6 % (11.7-14.2); RDW Standard Deviation 45.9 fL (35.1-46.3); Red Blood Cell Count 4.61 M/mm3 (4.30-5.90)
[2024-01-15 01:04] LABS: Albumin, Blood 3.5 g/dL (3.4-5.0); Albumin/Globulin Ratio 1.1 (0.8-1.8); Bilirubin, Total 1.6 mg/dL (0.1-1.0); Bun/Creatinine Ratio 37.8 (12.0-20.0); Calcium, Blood 8.8 mg/dL (8.5-10.1); Creatinine, Blood 0.77 mg/dL (0.60-1.20); Globulin, Blood 3.2 g/dL (2.2-4.0); Potassium, Blood 4.8 mmol/L (3.5-5.5); Total Protein, Blood 6.7 g/dL (6.4-8.2)
[2024-01-15] MEDS ORDERED: SIMETHICONE100 ML PO (01:11)
[2024-01-15] MEDS ORDERED: ACET325 PO (01:11)
[2024-01-15] MEDS ORDERED: ONELAX10 MG PR (01:12)
[2024-01-15] MEDS ORDERED: DESITIN DAILY136 GM TP (01:13)
[2024-01-15] MEDS ORDERED: LOPE2C PO (01:14)
[2024-01-15] MEDS ORDERED: DULCOLAX400 MG/5 M PO (01:15)
[2024-01-15 01:35] VITALS: BP 124/85
== END 2024-01-15 01:35 | disposition home or self-care (01) ==
LOC: ER 00:19
PROVIDERS: Emergency Medicine
DX: K92.1 Melena (principal); I10 Essential (primary) hypertension; J44.9 Chronic obstructive pulmonary disease, unspecified; E78.5 Hyperlipidemia, unspecified; Z87.891 Personal history of nicotine dependence; Z79.899 Other long term (current) drug therapy
CPT/HCPCS: 80053; 85025; 99285

== ENCOUNTER 2024-01-25 15:38 | Emergency (ER) | payer MEDICARE, OTHER ==
[~2024-01-25] VITALS: Ht 175.3 cm; Wt 83.9 kg
[~2024-01-25 15:38] MED LIST changes: +DESITIN DAILY136 GM TP; +DULCOLAX400 MG/5 M PO; +LOPE2C PO; +ONELAX10 MG PR; +SIMETHICONE100 ML PO
[2024-01-25 16:51] LABS: BASOPHILS ABSOLUTE AUTO 0.05 K/mm3 (0.00-0.23); BASOPHILS PERCENT AUTO 1 % (0-2); EOSINOPHILS ABSOLUTE AUTO 0.17 K/mm3 (0.00-0.68); EOSINOPHILS PERCENT AUTO 3 % (0-6); Hematocrit 43.6 % (37.0-53.0); Hemoglobin 14.9 g/dL (13.5-17.5); IMMATURE GRAN ABSOLUTE AUTO 0.02 K/mm3 (0.00-0.10); IMMATURE GRAN PERCENT AUTO 0 % (0-1); LYMPHOCYTES ABSOLUTE AUTO 1.64 K/mm3 (0.84-5.20); LYMPHOCYTES PERCENT AUTO 31 % (21-46); MONOCYTES ABSOLUTE AUTO 0.47 K/mm3 (0.16-1.47); MONOCYTES PERCENT AUTO 9 % (4-13); Mean Corpuscular HGB Conc 34.2 g/dL (31.5-36.5); Mean Corpuscular Volume 91 fL (80-100); NEUTROPHILS ABSOLUTE AUTO 2.99 K/mm3 (1.96-9.15); NEUTROPHILS PERCENT AUTO 56 % (41-73); Platelet Count 112 K/mm3 (150-400); RDW Coefficient Variation 13.2 % (11.7-14.2); RDW Standard Deviation 44.4 fL (35.1-46.3); Red Blood Cell Count 4.81 M/mm3 (4.30-5.90); White Blood Cell Count 5.34 K/mm3 (4.00-11.30)
[2024-01-25 17:09] LABS: Albumin, Blood 3.8 g/dL (3.4-5.0); Albumin/Globulin Ratio 1.3 (0.8-1.8); Bilirubin, Total 2.1 mg/dL (0.1-1.0); Bun/Creatinine Ratio 17.5 (12.0-20.0); Calcium, Blood 8.7 mg/dL (8.5-10.1); Creatinine, Blood 0.86 mg/dL (0.60-1.20); Globulin, Blood 2.9 g/dL (2.2-4.0); Potassium, Blood 3.6 mmol/L (3.5-5.5); Total Protein, Blood 6.7 g/dL (6.4-8.2)
[2024-01-25 17:45] VITALS: BP 182/148
[2024-01-25 17:57] LABS: Source, Urine Clean Catch
[2024-01-25 18:01] LABS: Appearance, Urine Clear (Clear); Bilirubin, Urine Neg (Neg); Blood, Urine Neg (Neg); Color, Urine Yellow (P-Yellow); Glucose Qualitative, Urine Neg (Neg); Ketones, Urine 1+ (Neg); Leukocyte Esterase, Urine Neg (Neg); Nitrite, Urine Neg (Neg); Protein, Urine Neg (Neg); Urobilinogen, Urine NORM (Normal)
[2024-01-25] MEDS ORDERED: ALPRAZolam 0.25 MG Tab PO ONE (19:25)
== END 2024-01-25 19:53 | disposition home or self-care (01) ==
LOC: ER 15:38
PROVIDERS: Nurse Practitioner
DX: R25.1 Tremor, unspecified (principal); R26.81 Unsteadiness on feet; F03.90 Unspecified dementia, unspecified severity, without behavioral disturbance, psychotic disturbance, mood disturbance, and anxiety; I10 Essential (primary) hypertension; J44.9 Chronic obstructive pulmonary disease, unspecified; Z87.891 Personal history of nicotine dependence; Z79.899 Other long term (current) drug therapy
CPT/HCPCS: 76870; 80053; 81003; 85025; 99284-25

== ENCOUNTER 2024-02-02 22:51 | Emergency (ER) | payer MEDICARE, OTHER ==
[~2024-02-02] VITALS: Ht 170.2 cm; Wt 70.3 kg
[2024-02-02 23:07] VITALS: BP 135/86
== END 2024-02-03 00:30 | disposition home or self-care (01) ==
LOC: ER 22:51
DX: S70.02XA Contusion of left hip, initial encounter (principal); W18.30XA Fall on same level, unspecified, initial encounter; F03.90 Unspecified dementia, unspecified severity, without behavioral disturbance, psychotic disturbance, mood disturbance, and anxiety; Z79.899 Other long term (current) drug therapy; I10 Essential (primary) hypertension; J44.9 Chronic obstructive pulmonary disease, unspecified; E78.5 Hyperlipidemia, unspecified; Z87.891 Personal history of nicotine dependence
CPT/HCPCS: 73502; 99283-25

== ENCOUNTER 2024-03-02 19:43 | Emergency (ER) | payer MEDICARE, OTHER ==
[~2024-03-02] VITALS: Ht 175.3 cm; Wt 79.8 kg
[2024-03-02 19:48] VITALS: BP 156/98
[2024-03-03] MEDS ORDERED: CARBIDOPA-LEVO1 EA15 PO (22:36)
[2024-03-03] MEDS ORDERED: MIRTAZAPINE7.5 M1 PO (22:37)
[2024-03-04] MEDS ORDERED: DOC250 PO (17:33)
== END 2024-03-02 21:10 | disposition home or self-care (01) ==
LOC: ER 19:43
DX: S05.32XA Ocular laceration without prolapse or loss of intraocular tissue, left eye, initial encounter (principal); I10 Essential (primary) hypertension; E78.5 Hyperlipidemia, unspecified; J44.9 Chronic obstructive pulmonary disease, unspecified; I25.2 Old myocardial infarction; Y04.8XXA Assault by other bodily force, initial encounter; Z87.891 Personal history of nicotine dependence; Z79.899 Other long term (current) drug therapy
CPT/HCPCS: 99284

== ENCOUNTER 2024-05-28 12:04 | Emergency (ER) | payer MEDICARE, OTHER ==
[~2024-05-28] VITALS: Ht 175.3 cm; Wt 68.0 kg
[~2024-05-28 12:04] MED LIST changes: +CARBIDOPA-LEVO1 EA15 PO; +DOC250 PO; +MIRTAZAPINE7.5 M1 PO
[2024-05-28] MEDS ORDERED: POLYMYXIN B-TMP10 ML RIGHTEYE (13:07)
[2024-05-28 13:15] VITALS: BP 156/95
== END 2024-05-28 13:32 | disposition home or self-care (01) ==
LOC: ER 12:04
DX: H10.89 Other conjunctivitis (principal); I10 Essential (primary) hypertension; E78.5 Hyperlipidemia, unspecified; J44.9 Chronic obstructive pulmonary disease, unspecified; I25.2 Old myocardial infarction; G30.9 Alzheimer's disease, unspecified; F02.80 Dementia in other diseases classified elsewhere, unspecified severity, without behavioral disturbance, psychotic disturbance, mood disturbance, and anxiety; G20.A1 Parkinson's disease without dyskinesia, without mention of fluctuations; N40.0 Benign prostatic hyperplasia without lower urinary tract symptoms; Z87.891 Personal history of nicotine dependence; Z79.899 Other long term (current) drug therapy
CPT/HCPCS: 99283

== ENCOUNTER → 2024-08-30 | Outpatient (CLI) | payer MEDICARE, OTHER ==
[~2024-08-30] MED LIST changes: +POLYMYXIN B-TMP10 ML RIGHTEYE
[2024-08-30 13:44] LABS: Source, Urine Clean Catch
[2024-08-30 15:29] LABS: Appearance, Urine Clear (Clear); Bilirubin, Urine Neg (Neg); Blood, Urine 1+ (Neg); Color, Urine Yellow (P-Yellow); Glucose Qualitative, Urine Neg (Neg); Ketones, Urine Neg (Neg); Leukocyte Esterase, Urine Neg (Neg); Nitrite, Urine Neg (Neg); Protein, Urine Neg (Neg); Specific Gravity, Urine 1.015 (1.003-1.022); Urobilinogen, Urine NORM (Normal)
[2024-08-30 15:45] LABS: Squamous Epithelial Cells Rare /hpf (Few); White Blood Cells, Urine 0-2 /hpf (0-5)
[2024-08-30 15:46] LABS: Bacteria Few /hpf
== END ==
LOC: LAB SHORT 09:00 → LAB 09:00
PROVIDERS: Family Medicine
DX: N39.0 Urinary tract infection, site not specified (principal)
CPT/HCPCS: 81001

== ENCOUNTER 2024-12-04 15:57 | Emergency (ER) | payer MEDICARE, OTHER ==
[~2024-12-04] VITALS: Ht 175.3 cm; Wt 83.9 kg
[2024-12-04] MEDS ORDERED: FentaNYL Citrate 50 MCG/ML 2 ML Injection IV ONE ×2 (16:15→16:45)
[2024-12-04 18:05] VITALS: BP 165/106
[2024-12-04] MEDS ORDERED: Acetaminophen 500 MG Tab PO ONE (18:10)
[2024-12-04] MEDS ORDERED: RX Prepack 6 Tabs Oxycodone 5mg UD ONE (18:10)
[2024-12-04] MEDS ORDERED: OxyCODONE HCL 5 MG TAB PO ONE (18:10)
[2024-12-04] MEDS ORDERED: ACET500 PO (18:42)
[2024-12-04] MEDS ORDERED: Roxicodone5 MG PO (18:42)
== END 2024-12-04 22:14 | disposition home or self-care (01) ==
LOC: ER 15:57
DX: S82.51XA Displaced fracture of medial malleolus of right tibia, initial encounter for closed fracture (principal); S82.491A Other fracture of shaft of right fibula, initial encounter for closed fracture; I10 Essential (primary) hypertension; J44.9 Chronic obstructive pulmonary disease, unspecified; I25.2 Old myocardial infarction; W17.89XA Other fall from one level to another, initial encounter; Z79.899 Other long term (current) drug therapy; Z87.891 Personal history of nicotine dependence
CPT/HCPCS: 27788; 73590; 73600; 96374-59; 96376-59; 99283-25; A9270; J3010